=== PATIENT | female | born 1995 | race Two or more races ===

== ENCOUNTER 2019-05-12 23:50 | Inpatient (IN) ==
[2019-05-13 00:27] LABS: Apearance,Urine CLEAR (Clear); Bilirubin,Urine Negative (Negative); Blood, Urine Negative (Negative); Glucose,Urine (UA) Negative (Negative); Ketones,Urine Negative (Negative); Nitrite,Urine Negative (Negative); Protein,Urine Negative; RBC,Urine 1 /HPF (0-4); Urine Color Colorless (Yellow); Urine Specific Gravity 1.002 (1.001-1.035); Urine Urobilinogen < 2.0 EU/DL (0.2-1.0)
[2019-05-13] MEDS ORDERED: ONDANSETRON 4 MG/2 ML VIAL IV PRN (00:53)
[2019-05-13 01:24] LABS: Basophils % 0.3 % (0.0-0.8); Eosinophils # 0.1 10*3/uL (0.0-0.87); Eosinophils % 0.6 % (0.00-10.9); Immature Granulocytes % 0.8 %; Immature Granulocytes Absolute 0.12 #; Lymphocytes # 3.4 10*3/uL (1.4-4.0); Lymphocytes % 23.2 % (21.3-54.2); Mean Corpuscular HGB Conc 33.3 GM/DL (32-36); Mean Corpuscular Volume 90.5 FL (87-102); Mean Platelet Volume 9.9 FL (9.6-12.0); Monocytes % 6.8 % (1.7-12.7); Neutrophils % 68.3 % (38.7-73.9); Platelet Count 260 T/CUMM (130-400); Red Blood Count 4.97 MC/CUMM (3.8-5.5); Red Cell Distribution Width 13.3 % (9.3-17.3); White Blood Count 14.5 T/CUMM (4-12)
[2019-05-13] MEDS: LACTATED RINGERS 1,000 ML IV SCH ×3 (01:25→08:21)
[2019-05-13] MEDS: OXYTOCIN/LR 20 UNIT/1,000 ML BAG IV SCH ×2 (03:07→13:18)
[2019-05-13] MEDS ORDERED: BUTORPHANOL 2 MG/ML VIAL IV PRN (05:59)
[2019-05-13] MEDS ORDERED: fentaNYL 2 MCG/ROPIV 0.2% EPID 100 ML EPIDURAL SCH (07:30)
[2019-05-13] MEDS ORDERED: hydrOXYzine HCL 25 MG/1 ML VIAL IM PRN (07:30)
[2019-05-13] MEDS ORDERED: ONDANSETRON 4 MG/2 ML VIAL IV ONE (07:30)
[2019-05-13] MEDS ORDERED: ePHEDrine 50 MG/ML AMP IV PRN (07:30)
[2019-05-13] MEDS ORDERED: NALOXONE 0.4 MG/ML VIAL IV PRN (07:30)
[2019-05-13] MEDS ORDERED: LACTATED RINGERS 250 ML IV PRN (07:30)
[2019-05-13] MEDS ORDERED: diphenhydrAMINE 50 MG/1 ML VIAL IV PRN ×2 (07:30)
[2019-05-13] MEDS ORDERED: CITRIC ACID/SODIUM CITRATE 30 ML UDCUP PO ONE (07:34)
[2019-05-13] MEDS ORDERED: FAMOTIDINE 20 MG/2 ML VIAL IV ONE (07:34)
[2019-05-13] MEDS ORDERED: LACTATED RINGERS 500 ML IV ONE (07:34)
[2019-05-13] MEDS ORDERED: TERBUTALINE 1 MG/1 ML VIAL ONE (09:47)
[2019-05-13] MEDS ORDERED: TERBUTALINE 1 MG/1 ML VIAL SUBCUT ONE (09:51)
[2019-05-13 10:07] LABS: Amorphous Crystals,Urine Occasional /HPF (Few); Apearance,Urine CLEAR (Clear); Bilirubin,Urine Negative (Negative); Blood, Urine Negative (Negative); Glucose,Urine (UA) Negative (Negative); Ketones,Urine 5 mg/dL (Negative); Mucus,Urine Few /LPF (Occasional); Nitrite,Urine Negative (Negative); Protein,Urine Negative; RBC,Urine 1 /HPF (0-4); Squamous Epithelial Cell,Urine Occasional /HPF (0-10); Urine Color Yellow (Yellow); Urine Specific Gravity 1.014 (1.001-1.035); Urine Urobilinogen < 2.0 EU/DL (0.2-1.0); WBC,Urine <1 /HPF (0-6)
[2019-05-13] MEDS ORDERED: ceFAZolin 2,000 MG in PREMIX 1 EACH IV ONE (11:08)
[2019-05-13] MEDS ORDERED: MORPHINE 10 MG/10 ML VIAL ONE (11:18)
[2019-05-13] MEDS ORDERED: LIDOCAINE MPF 2% /EPI 20 ML VIAL ONE (11:18)
[2019-05-13] MEDS ORDERED: TISSUE ADHESIVE 1 EACH APPLICATOR TOP ONE (12:26)
[2019-05-13] MEDS ORDERED: MIDAZOLAM 2 MG/2 ML VIAL ONE (12:51)
[2019-05-13] MEDS ORDERED: ACETAMINOPHEN 500 MG TABLET PO PRN (12:54)
[2019-05-13] MEDS: KETOROLAC 30 MG/1 ML VIAL IV SCH ×2 (13:15→18:51)
[2019-05-13] MEDS ORDERED: PHENYLEPHRINE 1 MG/10 ML SYRINGE IV ONE (15:14)
[2019-05-13] MEDS: ceFAZolin 1,000 MG in SYRINGE 1 EACH IV SCH (18:28)
[2019-05-13 20:58] LABS: Basophils % 0.1 % (0.0-0.8); Hematocrit 36.2 VOL% (35.7-47.0); Hemoglobin 11.8 GM/DL (12.0-16.0); Immature Granulocytes % 0.4 %; Immature Granulocytes Absolute 0.09 #; Lymphocytes # 3.3 10*3/uL (1.4-4.0); Lymphocytes % 16.4 % (21.3-54.2); Mean Corpuscular HGB Conc 32.6 GM/DL (32-36); Mean Corpuscular Volume 92.3 FL (87-102); Mean Platelet Volume 9.7 FL (9.6-12.0); Monocytes % 5.6 % (1.7-12.7); Neutrophils % 77.5 % (38.7-73.9); Platelet Count 225 T/CUMM (130-400); Red Blood Count 3.92 MC/CUMM (3.8-5.5); Red Cell Distribution Width 13.3 % (9.3-17.3); White Blood Count 20.2 T/CUMM (4-12)
[2019-05-13 21:19] LABS: Band Neutrophils 3 % (0-10); Lymphocytes 17 % (20-55); Platelet Estimate Normal; Reactive Lymphocytes Slight; Segmented Neutrophils 72 % (50-85); Total Cells Counted 100
[2019-05-14] MEDS: KETOROLAC 30 MG/1 ML VIAL IV SCH ×2 (02:03→09:00)
[2019-05-14] MEDS: ceFAZolin 1,000 MG in SYRINGE 1 EACH IV SCH (02:06)
[2019-05-14 06:20] LABS: Basophils # 0.1 10*3/uL (0.0-0.2); Basophils % 0.2 % (0.0-0.8); Eosinophils % 0.2 % (0.00-10.9); Hematocrit 34.6 VOL% (35.7-47.0); Hemoglobin 11.4 GM/DL (12.0-16.0); Immature Granulocytes % 0.7 %; Immature Granulocytes Absolute 0.14 #; Lymphocytes # 2.7 10*3/uL (1.4-4.0); Lymphocytes % 13.2 % (21.3-54.2); Mean Corpuscular HGB Conc 32.9 GM/DL (32-36); Mean Platelet Volume 10.1 FL (9.6-12.0); Monocytes % 4.8 % (1.7-12.7); Neutrophils % 80.9 % (38.7-73.9); Platelet Count 205 T/CUMM (130-400); Red Blood Count 3.76 MC/CUMM (3.8-5.5); Red Cell Distribution Width 13.4 % (9.3-17.3); White Blood Count 20.5 T/CUMM (4-12)
[2019-05-14 06:51] LABS: Lymphocytes 17 % (20-55); Segmented Neutrophils 80 % (50-85); Total Cells Counted 100
[2019-05-14 06:52] LABS: Platelet Estimate Adequate; Polychromasia Few
[2019-05-14] MEDS: DOCUSATE SODIUM 100 MG CAPSULE PO SCH ×3 (09:00→20:26)
[2019-05-14] MEDS ORDERED: MAGNESIUM HYDROXIDE SUSP 30 ML UDCUP PO PRN (19:04)
[2019-05-14] MEDS ORDERED: BISACODYL 10 MG SUPP RECTAL PRN (19:19)
[2019-05-14] MEDS: SIMETHICONE CHEW 80 MG TABLET PO PRN (19:32)
[2019-05-14] MEDS: IBUPROFEN 800 MG TABLET PO PRN (19:32)
[2019-05-15] MEDS: IBUPROFEN 800 MG TABLET PO PRN ×3 (06:13→19:13)
[2019-05-15] MEDS: DOCUSATE SODIUM 100 MG CAPSULE PO SCH ×3 (08:40→21:22)
[2019-05-15] MEDS: SIMETHICONE CHEW 80 MG TABLET PO PRN ×2 (13:47→19:14)
[2019-05-15 18:42] LABS: Basophils % 0.1 % (0.0-0.8); Eosinophils # 0.2 10*3/uL (0.0-0.87); Eosinophils % 0.9 % (0.00-10.9); Hematocrit 36.5 VOL% (35.7-47.0); Hemoglobin 11.9 GM/DL (12.0-16.0); Immature Granulocytes % 0.5 %; Immature Granulocytes Absolute 0.09 #; Lymphocytes # 2.8 10*3/uL (1.4-4.0); Lymphocytes % 16.8 % (21.3-54.2); Mean Corpuscular HGB Conc 32.6 GM/DL (32-36); Mean Corpuscular Volume 91.9 FL (87-102); Mean Platelet Volume 10.1 FL (9.6-12.0); Monocytes % 5.5 % (1.7-12.7); Neutrophils % 76.2 % (38.7-73.9); Platelet Count 249 T/CUMM (130-400); Red Blood Count 3.97 MC/CUMM (3.8-5.5); Red Cell Distribution Width 13.4 % (9.3-17.3); White Blood Count 16.9 T/CUMM (4-12)
[2019-05-16] MEDS: IBUPROFEN 800 MG TABLET PO PRN (04:52)
[2019-05-16 07:10] VITALS: BP 109/58
[2019-05-16] MEDS: SIMETHICONE CHEW 80 MG TABLET PO PRN (09:21)
[2019-05-16] MEDS: DOCUSATE SODIUM 100 MG CAPSULE PO SCH (09:21)
== END 2019-05-16 11:20 | disposition home or self-care (01) | DRG 788 ==
LOC: N.LDOUT 23:50 → N.LD 23:54 → N.OB 05-13 16:08
PROVIDERS: ADMIT Obstetrics & Gynecology; ATTEND Obstetrics & Gynecology
PROC: LDCSECT (ICD-10-PCS; 2019-05-13 11:00)